=== PATIENT | female | born 1995 | race Hispanic/Latino ===

== ENCOUNTER 2021-07-19 13:03 | Emergency (ER) | payer SELFPAY ==
--- NOTE | ~2021-07-19 | US_ITS ---
EXAMINATION: US OB follow up DATE: 07/19/2021 14:29 INDICATION: Pelvic cramping at the transition from 1st-2nd trimester . TECHNIQUE: Real-time ultrasound of the pelvis was performed. The interpreting radiologist was not pre sent for the study. COMPARISON: None. FINDINGS: There is a single living fetus in transverse lie with vertex to maternal right. The placenta is on th e maternal left. On the longitudinal image the placenta appears low-lying extending at least to the m argin of this not across the internal cervical os although evaluation is more limited on transabdomin al imaging. heart rate is 150 beats per minute (bpm). The amniotic fluid volume is subjectively normal. The following biometric data were obtained: BPD: 9.7 cm -> 15 weeks 3 days Head circumference: 11.5 cm -> 15 weeks 3 days Abdominal circumference: 9.2 cm -> 15 weeks 3 days Femur length: 1.8 cm -> 15 weeks 2 days These measurements are concordant. Head circumference to abdominal circumference ratio: 1.24 (normal range 1.05-1.37). Estimated weight: 123 g (+/-) 18 g or 4 oz. (+/-) 1 oz. IMPRESSION: 1. Single living fetus in transverse lie with heart rate of 150 bpm. 2. Gestational age by ultrasound of 15 weeks 3 day(s) +/- 1 week(s) 1 day(s) with ultrasound estimate d date of delivery (NATALIE) of 01/07/2022. Estimated weight is 36th percentile by Hadlock criteria when 01/07/2022 is used as the NATALIE. Please correlate with clinical information or earlier ultrasounds for most accurate NATALIE. 3. Low-lying, potentially previa placenta which appears to extend to the margin of if not across the internal cervical os. Recommend repeat imaging later during . Reviewed, dictated and finalized at location A. IMPRESSION: 1. Single living fetus in transverse lie with heart rate of 150 bpm. 2. Gestational age by ultrasound of 15 weeks 3 day(s) +/- 1 week(s) 1 day(s) wi th ultrasound estimated date of delivery (NATALIE) of 01/07/2022. Estimated we ight is 36th percentile by Hadlock criteria when 01/07/2022 is used as the NATALIE. Please correlate with clinical information or earlier ultrasounds for most accu rate NATALIE. 3. Low-lying, potentially previa placenta which appears to extend to the margin of if not across the internal cervical os. Recommend repeat imaging later duri ng .
[2021-07-19 13:05] VITALS: BP 116/75; PULSE 88; RESP 16; TEMP 36.8; O2SAT 96
--- NOTE | 2021-07-19 13:55 | ED.ABDPAIN ---
HPI - Abdominal Pain General Chief Complaint: Abdominal Pain <Martine Peña PA-C - Last Filed: 07/19/21 17:17> Stated Complaint: 3 months , abd/back pain <Martine Peña PA-C - Last Filed: 07/19/21 17:17> Time Seen by Provider: 07/19/21 13:10 <Martine Peña PA-C - Last Filed: 07/19/21 17:17> Source: patient <GALE Ohara Last Filed: 07/19/21 17:17> Mode of arrival: ambulatory <GALE Ohara Last Filed: 07/19/21 17:17> Limitations: no limitations <Martine Peña PA-C - Last Filed: 07/19/21 17:17> History of Present Illness HPI narrative: This is a 26 year old , about 12 weeks , that presents to the ER for pelvic cramping noted since yesterday. Associated with low back pain. Reports she has been seen by an [employer] in [place] and had a normal ultrasound this . She does not have a doctor established in the area here as she recently moved. Does report some nausea and vomiting this . Denies fever, dysuria, hematuria, or pelvic cramping. <Martine Peña PA-C - Last Filed: 07/19/21 17:17> Related Data Allergies/Adverse Reactions: Allergies Allergy/AdvReac Type Severity Reaction Status Date / Time No Known Allergies Allergy Verified 07/19/21 13:09 <Martine Peña PA-C - Last Filed: 07/19/21 17:17> Review of Systems Review of Systems: CONSTITUTIONAL: Denies fever GASTROINTESTINAL: Reports abdominal pain, nausea, vomiting. Denies diarrhea. GENITOURINARY: Denies dysuria or hematuria. <Martine Peña PA-C - Last Filed: 07/19/21 17:17> All systems reviewed & are unremarkable except as noted in HPI and below <GALE Ohara Last Filed: 07/19/21 17:17> [facility] Past Medical History Medical History: Medical History (Updated 07/19/21 @ 17:16 by Martine Peña PA-C) No active medical problems <Martine Peña PA-C - Last Filed: 07/19/21 17:17> Surgical History Surgical History: Surgical History (Updated 07/19/21 @ 14:00 by Martine Peña PA-C) History of cholecystectomy <Martine Peña PA-C - Last Filed: 07/19/21 17:17> Social History Social History: Social History (Updated 07/19/21 @ 14:00 by Martine Peña PA-C) Smoking status: Never smoker <Martine Peña PA-C - Last Filed: 07/19/21 17:17> Exam Narrative: GENERAL: Well-appearing, well-nourished, and in no acute distress. HEAD: Normocephalic, atraumatic. EYES: EOMI. CHEST: Clear to auscultation. No respiratory distress. No wheezes rales or rhonchi HEART: Regular rate and rhythm. No murmur heard. Normal peripheral pulses. ABDOMEN: Soft, nondistended, normal active bowel sounds. Mild tenderness to palpation throughout the lower abdomen, without guarding. No CVA tenderness EXTREMITIES: Normal range of motion. No edema. SKIN: Warm, dry, no rash. NEURO: No focal deficits. Alert and oriented x3. PSYCH: Normal mood and affect <Martine Peña PA-C - Last Filed: 07/19/21 17:17> Course Consultations Consultation #1: Spoke with Dr. Ramsey about patient and work-up who will follow-up in clinic. <Martine Peña PA-C - Last Filed: 07/19/21 17:17> Date: 07/19/21 <Martine Peña PA-C - Last Filed: 07/19/21 17:17> Time: 17:14 <Martine Peña PA-C - Last Filed: 07/19/21 17:17> Vital Signs Vital signs: Vital Signs Temperature 98.2 F 07/19/21 13:05 Pulse Rate 88 07/19/21 13:05 Respiratory Rate 16 07/19/21 13:05 Blood Pressure 116/75 07/19/21 13:05 Pulse Oximetry 96 07/19/21 13:05 Temperature 98.2 F 07/19/21 13:05 Pulse Rate 86 07/19/21 17:31 Respiratory Rate 16 07/19/21 17:31 Blood Pressure 116/73 07/19/21 17:31 Pulse Oximetry 98 07/19/21 17:31 <Martine Peña PA-C - Last Filed: 07/19/21 17:17> MDM - Abdominal Pain MDM Narrative Medical decision making narrative: Patient presents to the emergency department for pelvic cramping,
[2021-07-19 13:58] LABS: Basophils Percent Auto 0.3 % (0.2-1.2); Eosinophils Absolute Auto 0.1 K/mm3 (0-0.3); Eosinophils Percent Auto 1.1 % (0-4.4); Hematocrit 39.8 % (37.0-47.0); Hemoglobin 13.4 g/dL (12.0-15.0); Immature Granulocyte Absolute 0.03 K/mm3 (0.00-0.031); Immature Granulocyte Percent A 0.3 % (0-0.5); Lymphocytes Absolute Auto 1.41 K/mm3 (0.9-3.2); Lymphocytes Percent Auto 14.8 % (18.3-44.2); Mean Corpuscular HGB Conc 33.7 g/dl (32-36); Mean Corpuscular Hemoglobin 32.6 pg (26-34); Mean Corpuscular Volume 96.8 fl (80-100); Mean Platelet Volume 9.5 fl (7.4-10.4); Monocytes Absolute Auto 0.4 K/mm3 (0.1-0.6); Monocytes Percent Auto 4.3 % (2.6-8.5); Neutrophils Absolute Auto 7.5 K/mm3 (1.3-6.7); Neutrophils Percent Auto 79.2 % (45.5-73.1); Platelet Count Result 260 k/mm3 (150-375); Red Blood Count 4.11 M/mm3 (4.2-5.4); Red Cell Distribution Width 12.1 % (11.5-14.5); White Blood Count 9.5 K/mm3 (4.5-10.0)
[2021-07-19 14:09] LABS: Alanine Aminotransferase 17 U/L (4-35); Albumin Level 3.6 g/dL (3.5-5.1); Alkaline Phosphatase 72 U/L (38-126); Anion Gap 6 mmol/L (8-16); Aspartate Amino Transferase 19 U/L (14-36); Bilirubin,Total 0.3 mg/dL (0.2-1.3); Blood Urea Nitrogen 8 mg/dL (7-17); Calcium 8.7 mg/dL (8.4-10.2); Carbon Dioxide 23 mmol/L (22-30); Chloride 106 mmol/L (98-107); Estimated CRCL calculation 131 ml/min; Estimated Glomerular Filt Rate > 60; Glucose 82 mg/dL (65-110); Lipase 61 U/L (23-300); Potassium 4.1 mmol/L (3.4-5.0); Sodium 135 mmol/L (137-145)
[2021-07-19 15:22] LABS: Add Urine Microscopic? YES; Appearance Urine Cloudy (Clear); Bacteria Urine Trace /hpf; Bilirubin Urine Negative (Negative); Blood Urine Negative (Negative); Color Urine Yellow (Yellow); Glucose Urine UA Negative (Negative); Ketones Urine 1+ mg/dL (Negative); Leukocyte Esterase Ur Negative LEU/UL (Negative); Mucus Urine Moderate /lpf; Nitrate Urine Negative (Negative); Protein Urine Negative (Negative); Specific Grav Ur 1.031 (1.001-1.035); Squamous Epithelial Cell Urine Moderate /hpf (Few); WBC Urine 0-3 /hpf
[2021-07-19] MEDS: SODIUM CHLORIDE 0.9% IV 1,000 ML 999 ML IV CONT (15:35)
[2021-07-19 17:31] VITALS: BP 116/73; PULSE 86; RESP 16; O2SAT 98
== END 2021-07-19 17:33 | disposition home or self-care (01) ==
PROVIDERS: Physician Assistant; Emergency Provider General Practice
DX: O44.02 Complete placenta previa NOS or without hemorrhage, second trimester (principal); Z3A.15 15 weeks gestation of pregnancy; O26.892 Other specified pregnancy related conditions, second trimester; R10.2 Pelvic and perineal pain
CPT/HCPCS: 36415; 76816; 80053; 81001; 83690; 84702; 85025; 96361; 96365; 99284; J0131; J7030

== ENCOUNTER 2021-08-15 19:57 | Emergency (ER) | payer SELFPAY ==
[2021-08-15 20:00] VITALS: BP 111/84; PULSE 103; RESP 18; TEMP 37; O2SAT 100
[2021-08-15 22:06] VITALS: BP 121/75; PULSE 103; O2SAT 100
--- NOTE | 2021-08-16 00:45 | ED.ABDPAIN ---
HPI - Abdominal Pain General Chief Complaint: Abdominal Pain Stated Complaint: preg abd pain Time Seen by Provider: 08/15/21 23:51 Source: patient History of Present Illness HPI narrative: Patient presents with lower abdominal pain she is G5, P4 approximately 16 weeks . Reports she has had symptoms for the past 2 weeks and is getting progressively worse now radiating to her low back. Describes the pain as a pressure sensation symptoms are constant, no clear aggravating or alleviating factors. She denies any nausea or vomiting she denies any urinary symptoms. She is reports some vaginal discharge denies any vaginal bleeding. Related Data Allergies Allergy/AdvReac Type Severity Reaction Status Date / Time No Known Allergies Allergy Verified 08/15/21 20:03 Review of Systems Review of Systems: CONSTITUTIONAL: Denies fever, chills, or sweats. EYES: Denies visual changes, redness, or discharge. ENT: Denies rhinorrhea, congestion, sore throat, or otalgia. CARDIOVASCULAR: Denies chest pain, palpitations, or edema. RESPIRATORY: Denies cough or dyspnea. GASTROINTESTINAL: Denies nausea, vomiting, or diarrhea. GENITOURINARY: Denies dysuria or hematuria. SKIN: Denies rash or itching. MUSCULOSKELETAL: Denies joint pain, or myalgia. NEUROLOGIC: Denies headache, numbness, dizziness, or weakness. PSYCHIATRIC: Denies anxiety or depression. All systems reviewed & are unremarkable except as noted in HPI and below PMFSH Past Medical History Medical History No active medical problems Surgical History Surgical History History of cholecystectomy Social History Social History Smoking status: Never smoker Exam Narrative: GENERAL: Well-appearing, well-nourished, and in no acute distress. HEAD: Normocephalic, atraumatic. EYES: PERRLA and EOMI. ENT: Nares clear, no rhinorrhea or epistaxis. Mucous membranes moist. NECK: Supple. No masses. No JVD CHEST: Clear to auscultation. No respiratory distress. No wheezes rales or rhonchi HEART: Regular rate and rhythm. No murmur heard. Normal peripheral pulses. ABDOMEN: Moderate tenderness in the suprapubic area soft, nondistended. EXTREMITIES: Normal range of motion. No edema. SKIN: Warm, dry, no rash. NEURO: No focal deficits. Alert and oriented x3. PSYCH: Normal mood and affect. Course Reevaluation(s) Reevaluation #1: Patient is resting comfortably. Case discussed with OB on-call. Patient is comfortable with outpatient supportive therapies and follow-up with OB. Date: 08/16/21 Time: 02:04 Vital Signs Vital signs: Vital Signs Temperature 37.0 C 08/15/21 20:00 Pulse Rate 103 H 08/15/21 20:00 Respiratory Rate 18 08/15/21 20:00 Blood Pressure 111/84 08/15/21 20:00 Pulse Oximetry 100 08/15/21 20:00 Temperature 37.0 C 08/15/21 20:00 Pulse Rate 88 08/16/21 02:12 Respiratory Rate 15 08/16/21 02:12 Blood Pressure 101/63 08/16/21 02:12 Pulse Oximetry 98 08/16/21 02:12 MDM - Abdominal Pain MDM Narrative Medical decision making narrative: H&P as above, vss, pt looks clinically well, exam with suprapubic tenderness pelvic exam not performed as prior ultrasound showed concern for previa, labs with UA concerning for infection, heart rate reassuring, additional labs/img considered, symptomatic relief available as needed, on reevaluation pt continues to looks clinically well. Symptoms remain of unclear etiology however due to the pressure and UA findings primary concern is for UTI, dns ectopic, severe sepsis, severe dehydration. plan to tx/monitor as op w/ pcm f/u findings/plan discussed with pt, pt agree/comfortable with plan, return precautions given Lab Data Result diagrams: 08/16/21 01:00 08/16/21 01:00 Labs: Lab Results 08/16/21 08/16/21 08/16/21 Rang
[2021-08-16] MEDS: SODIUM CHLORIDE 0.9% IV 1,000 ML 999 ML IV CONT (01:02)
[2021-08-16 01:03] VITALS: BP 100/59; PULSE 91; RESP 15; O2SAT 100
[2021-08-16 01:14] LABS: Basophils Absolute Auto 0.1 K/mm3 (0.0-0.1); Basophils Percent Auto 0.5 % (0.2-1.2); Eosinophils Absolute Auto 0.2 K/mm3 (0-0.3); Eosinophils Percent Auto 1.6 % (0-4.4); Hematocrit 36.5 % (37.0-47.0); Hemoglobin 12.4 g/dL (12.0-15.0); Immature Granulocyte Absolute 0.04 K/mm3 (0.00-0.031); Immature Granulocyte Percent A 0.4 % (0-0.5); Lymphocytes Absolute Auto 2.74 K/mm3 (0.9-3.2); Lymphocytes Percent Auto 26.6 % (18.3-44.2); Mean Corpuscular Volume 97.1 fl (80-100); Mean Platelet Volume 9.4 fl (7.4-10.4); Monocytes Absolute Auto 0.5 K/mm3 (0.1-0.6); Monocytes Percent Auto 5.1 % (2.6-8.5); Neutrophils Absolute Auto 6.8 K/mm3 (1.3-6.7); Neutrophils Percent Auto 65.8 % (45.5-73.1); Platelet Count Result 271 k/mm3 (150-375); Red Blood Count 3.76 M/mm3 (4.2-5.4); Red Cell Distribution Width 12.4 % (11.5-14.5); White Blood Count 10.3 K/mm3 (4.5-10.0)
[2021-08-16 01:25] LABS: Add Urine Microscopic? YES; Appearance Urine Cloudy (Clear); Bacteria Urine 4+ /hpf; Bilirubin Urine Negative (Negative); Blood Urine Negative (Negative); Color Urine Amber (Yellow); Glucose Urine UA Negative (Negative); Ketones Urine Negative (Negative); Leukocyte Esterase Ur 1+ LEU/UL (Negative); Mucus Urine Heavy /lpf; Nitrate Urine Negative (Negative); Protein Urine 1+ mg/dL (Negative)
[2021-08-16 01:27] LABS: Lactic Acid Reflex 0.5 mmol/L (0.7-2.1)
[2021-08-16 01:28] LABS: Specific Grav Ur 1.032 (1.001-1.035)
[2021-08-16 01:39] LABS: Alanine Aminotransferase 18 U/L (4-35); Albumin Level 3.2 g/dL (3.5-5.1); Alkaline Phosphatase 74 U/L (38-126); Anion Gap 7 mmol/L (8-16); Aspartate Amino Transferase 20 U/L (14-36); Bilirubin,Total 0.2 mg/dL (0.2-1.3); Blood Urea Nitrogen 8 mg/dL (7-17); Calcium 8.4 mg/dL (8.4-10.2); Carbon Dioxide 22 mmol/L (22-30); Chloride 108 mmol/L (98-107); Estimated CRCL calculation 151 ml/min; Estimated Glomerular Filt Rate > 60; Glucose 84 mg/dL (65-110); Lipase 50 U/L (23-300); Potassium 3.6 mmol/L (3.4-5.0); Sodium 137 mmol/L (137-145)
[2021-08-16 01:48] VITALS: BP 100/59
[2021-08-16 02:12] VITALS: BP 101/63; PULSE 88; RESP 15; O2SAT 98
== END 2021-08-16 02:21 | disposition home or self-care (01) ==
PROVIDERS: Emergency Provider Emergency Medicine
DX: O23.42 Unspecified infection of urinary tract in pregnancy, second trimester (principal); O26.892 Other specified pregnancy related conditions, second trimester; R10.9 Unspecified abdominal pain; Z3A.16 16 weeks gestation of pregnancy; Z90.49 Acquired absence of other specified parts of digestive tract
CPT/HCPCS: 36415; 80053; 81001; 83605; 83690; 85025; 96360; 99284; J7030